=== PATIENT | male | born 1955 | race Caucasian/White ===

== ENCOUNTER 2023-11-01 14:50 | Emergency (ER) | payer MEDICARE, SELFPAY ==
[2023-11-01 14:50] VITALS: BP 157/86; PULSE 83; RESP 16; TEMP 36.3; O2SAT 95
--- NOTE | 2023-11-01 14:59 | ED.DENTAL ---
HPI - Dental/Oral General Chief complaint: Dental/Oral Stated complaint: dental pain Time Seen by Provider: 11/01/23 14:59 Source: patient Mode of arrival: ambulatory Limitations: no limitations History of Present Illness HPI Narrative: patient is a 68-year-old male with left lower jaw pain from a dental problem. Tooth 18 is giving him trouble and he has a dental appointment next week. His left face has pain. MD Complaint: tooth pain Location: Tooth # ( Eighteen) Onset (ago): day(s) (2) Duration: constant Severity: moderate Severity scale (1-10): 7 Relieving factors: nothing Exacerbating factors: chewing, cold, heat and drinking fluids Treatment prior to arrival: none Related Data Home Medications Medication Instructions Recorded Confirmed atorvastatin 10 mg tablet 10 mg PO DAILY 11/01/23 11/01/23 empagliflozin 25 mg tablet 25 mg PO DAILY 11/01/23 11/01/23 (Jardiance) insulin glargine 100 unit/mL (3 20 unit subcut DAILY 11/01/23 11/01/23 mL) subcutaneous pen (Lantus Solostar U-100 Insulin) metformin 500 mg tablet,extended 500 mg PO BID 11/01/23 11/01/23 release 24 hr rivaroxaban 20 mg tablet (Xarelto) 20 mg PO DAILY 11/01/23 11/01/23 Allergies Allergy/AdvReac Type Severity Reaction Status Date / Time No Known Allergies Allergy Verified 11/01/23 14:58 Review of Systems Review of Systems: All systems reviewed & are unremarkable except as noted in HPI and below Constitutional: Constitutional: Reports no additional constitutional complaints Eyes: Eyes: Reports no additional eye complaints ENT: Reports system reviewed and no additional complaints, except as documented Cardiovascular: Cardiovascular: Reports no additional cardiovascular complaints Respiratory: Respiratory: Reports no additional respiratory complaints Gastrointestinal: Gastrointestinal: Reports no additional gastrointestinal complaints Genitourinary: Genitourinary: Reports no additional male genitourinary complaints Musculoskeletal: Musculoskeletal: Reports no additional musculoskeletal complaints Integumentary/Breasts: Skin/Breast: Reports system reviewed and no additional complaints, except as docu Neurologic: Reports system reviewed and no additional complaints, except as documented Psychiatric: Psychiatric: Reports no additional psychiatric complaints Endocrine: Endocrine: Reports no additional endocrine complaints Hematologic/Lymphatic: Hematologic/Lymphatic: Reports no additional hematologic/lymphatic complaints Allergic/Immunologic: Allergic/Immunologic: Reports no additional allergic/immunologic complaints Exam Const: General: healthy appearing Nutritional Appearance: well nourished Orientation/consciousness: patient oriented x3 HENMT: Head: normal to inspection Ears: external ears normal Face/Nose/Sinus: Normal external nose present Other: tooth 18 has decay and local irritation but no abscess Eyes: Conjunctivae: conjunctivae normal Pupils: Equal, round and reactive pupils present EOM: EOMs intact bilaterally Neck: Neck: normal visual inspection Chest: Chest palpation & inspection: normal inspection of the chest Resp: Effort & Inspection: normal respiratory effort and not labored Auscultation: clear to auscultation bilaterally Cardio: Rate: regular rate Rhythm: regular rhythm Heart sounds: no murmurs GI: Inspection: non-distended Auscultation: normal bowel sounds : General: Yes bladder normal to palpation Back/Spine/Pelvis: Back: no CVA tenderness Skin: General skin exam: normal color Rashes: no rashes Wounds: no wounds Neuro: General: patient oriented x3 Cranial nerves: Yes Nystagmus not present Speech: normal speech Extrem: General: normal to inspection Psych: Mental Status: mental status grossly normal Affect: normal affect Attitude: cooperative MDM - Dental/Oral MDM Narrative Medical decision making narrative: patient is a 68-year-old male with tooth decay. W
[2023-11-01] MEDS: KETOROLAC (*BKC) 60 MG/2 ML VIAL IM (15:27)
[2023-11-01] MEDS: AMOXICILLIN/CLAVULANATE K 875-125 MG TAB 1 TABLET PO (15:27)
== END 2023-11-01 15:32 | disposition home or self-care (01) ==
PROVIDERS: Emergency Provider Emergency Medicine; PCP Physician Assistant
DX: R68.84 Jaw pain (principal); Z79.899 Other long term (current) drug therapy; Z79.4 Long term (current) use of insulin
CPT/HCPCS: 96372; 99283; A9270; J1885

== ENCOUNTER 2024-05-09 12:05 | Emergency (ER) | payer MEDICARE, SELFPAY ==
[2024-05-09 12:05] VITALS: BP 130/78; PULSE 80; RESP 18; TEMP 36.6; O2SAT 95
--- NOTE | 2024-05-09 12:13 | ED.WOUNDLAC ---
HPI - Wound/Laceration General Chief Complaint: Wound/Laceration Stated Complaint: LACERATION Time Seen by Provider: 05/09/24 12:12 Related Data Home Medications ?Medication ?Instructions ?Recorded ?Confirmed ?Last Taken ?Type atorvastatin 10 mg tablet 10 mg PO DAILY 11/01/23 11/01/23 Unknown History empagliflozin 25 mg tablet 25 mg PO DAILY 11/01/23 11/01/23 Unknown History (Jardiance) insulin glargine 100 unit/mL (3 20 unit subcut DAILY 11/01/23 11/01/23 Unknown History mL) subcutaneous pen (Lantus Solostar U-100 Insulin) metformin 500 mg tablet,extended 500 mg PO BID 11/01/23 11/01/23 Unknown History release 24 hr rivaroxaban 20 mg tablet (Xarelto) 20 mg PO DAILY 11/01/23 11/01/23 Unknown History Allergies Allergy/AdvReac Type Severity Reaction Status Date / Time No Known Allergies Allergy Verified 05/09/24 12:09 Discharge Plan Discharge Patient Language: Moldovan Prescriptions: No Action atorvastatin 10 mg tablet 10 mg PO DAILY metformin 500 mg tablet extended release 24 hr 500 mg PO BID insulin glargine [Lantus Solostar U-100 Insulin] 100 unit/mL (3 mL) insulin pen 20 unit SUBCUT DAILY Xarelto 20 mg tablet 20 mg PO DAILY Jardiance 25 mg tablet 25 mg PO DAILY amoxicillin-pot clavulanate [Augmentin] 500-125 mg tablet 1 tablet PO BID 10 Days Qty: 20 0RF tramadol 50 mg tablet 50 mg PO Q8H PRN (Reason: pain) Qty: 20 0RF Rx Instructions: 1-2 tabs per dose Follow-up/Referrals: Theron,FLAKO Mak [Primary Care Provider] -
[2024-05-09] MEDS: TETANUS,DIPHTHERIA,AC PERTUSSIS ADULT 0.5 ML (ADACEL) IM (12:24)
[2024-05-09] MEDS: LIDOCAINE 1% LOCAL INJ 10 ML VIAL 7 ML INFILTRATE (12:24)
--- OUTSIDE RECORDS SUMMARY | 2024-05-09 13:07 | XMS_ITS | Encounter Summary ---
Author Organization [facility] Address [address] [place] [address] Phone Care Team Providers Care Rehabilitation Services Manager Name Role Phone Letitia Martínez MD Primary Care Provider Chuck Goldman MD Unavailable [phone] Aubree Crump PAC Primary Care Pro vider Madhavi Ware MD Unavailable Reason for Visit * Reason Comments Medication Refill Encounter Details Date Type Department Care Team (Late st Contact Info) Description 10/17/2019 Refill [facility] [address] [place], [place] [id number] Letitia Martínez MD [address] [place] [address] Medication Refill Social History Tobacco Use Types Packs/Day Years Used Date Smoking Tobacco: Never Smokeless Tobacco: Never Alcohol Use Standard Drinks/Week Comments No 0 (1 standard drink = 0.6 oz pur e alcohol) PHQ-2 Answer Date Recorded PHQ-2 Score 0 12/11/2018 Sex and Gender Information Value Date Recorded Sex Assigned at Not on file Legal Sex Male 10:44 AM CDT Gender Identity Not on file Sexual Orientation Not on file documented as of this encounter Miscellaneous Notes * Telephone Encounter - Megan Padilla RN - 10/21/2019 3:19 PM CDT Request for atorvastatin refused. Medication was authorized on 08-10-19 for #[id number]. Pharmacy notified via [email or web address]. documented in this encounter Plan of Treatment Upcoming Encounters Date Type Department Care Team (Late st Contact Info) Description 05/20/2024 8:15 AM SEARCH ENGINE MARKETING MANAGER Office [facility] - Internal Medicine - [place] [address] [place] [id number] Aubree Crump, [facility] [address] [place] [address] documented as of this encounter Visit Diagnoses Not on filedocumented in this encounter Additional Health Concerns Assessment Noted Time PHQ-9 Depression Total Score: 0 11/12/19 19 2:49 PM CDT documented as of this encounter Care Teams Rehabilitation Services Manager Relationship Specialty Start Date End Date Letitia Martínez MD [address] [place] [address] PCP - General Family Medicine 02/23/15 08/02/20 Aubree Crump, [facility] [address] [place] [address] PCP - General Physician Specialist Wound Care 08/03/20 Chuck Goldman MD [address] [place] [address] Consulting Physician Family Medicine 05/13/18 Madhavi Ware MD [address] [phone] Consulting Physician Endocrinology 08/29/22 documented as of this encounter
--- OUTSIDE RECORDS SUMMARY | 2024-05-09 13:07 | XMS_ITS | Encounter Summary ---
Author Organization [facility] Address [address] [place] [address] Phone Care Team Providers Care Thoracic Medicine Specialist Name Role Phone Chuck Goldman MD Unavailable [phone] Aubree Crump PAC Primary Care Pro vider Madhavi Ware MD Unavailable Reason for Visit * Reason Comments Medication Refill Encounter Details Date Type Department Care Team (Late st Contact Info) Description 07/14/2022 Refill [facility] [place] [facility] - Internal Medicine - [place] [address] [place] [address] Aubree Crump, PAC [address] [place] [address] Medication Refill Social History Tobacco Use Types Packs/Day Years Used Date Smoking Tobacco: Never Smokeless Tobacco: Never Alcohol Use Standard Drinks/Week Comments No 0 (1 standard drink = 0.6 oz pur e alcohol) PHQ-2 Answer Date Recorded Total Score - Questions 1-9 0 04/07 Sex and Gender Information Value Date Recorded Sex Assigned at Not on file Legal Sex Male 10:44 AM CDT Gender Identity Not on file Sexual Orientation Not on file documented as of this encounter Miscellaneous Notes * Telephone Encounter - Manuela Alva RN - 07/14/2022 11:05 AM CDT Medication failed the protocol, provider to review and approve the medication order if appropriate. Requested Prescriptions Pending Prescriptions Disp Refills Jardiance 25 MG Tablet [Pharmacy Med Name: JARDIANCE 25 MG TABLET] 90 Tablet 1 Sig: TAKE 1 TABLET BY MOUTH DAILY. SGLT2 Inhibitors Protocol Failed - 07/14/2022 10:09 AM Failed - Visit with relevant provider in past 6 months or upcoming 90 days Recent Visits No visits were found meeting these conditions. Showing recent visits within past 182 days and meeting all other requirements Future Appointments No visits were found meeting these conditions. Showing future appointments within next 90 days and meeting all other requirements Passed - HgA1C on record in past 6 months HGB-A1C Date Value Ref Range Status 05/17/2022 8.2 (H) 4.0 - 6.0 % Final Passed - GFR greater than or equal to 30 in past 6 months GFR, EST. NONAFRICAN Date Value Ref Range Status 05/17/2022 >60 >=60 Final metFORMIN (GLUCOPHAGE-XR) 500 MG TABLET SR 24 HR [Pharmacy Med Name: METFORMIN ER 500MG TABLETS] 180 Tablet 0 Sig: TAKE 2 TABLETS DAILY Biguanides Protocol Failed - 07/14/2022 10:09 AM Failed - Visit with relevant provider in past 6 months or upcoming 90 days Recent Visits No visits were found meeting these conditions. Showing recent visits within past 182 days and meeting all other requirements Future Appointments No visits were found meeting these conditions. Showing future appointments within next 90 days and meeting all other requirements Passed - HgA1C on record in past 6 months HGB-A1C Date Value Ref Range Status 05/17/2022 8.2 (H) 4.0 - 6.0 % Final Passed - GFR on record in past 6 months GFR, EST. NONAFRICAN Date Value Ref Range Status 05/17/2022 >60 >=60 Final documented in this encounter Plan of Treatment Upcoming Encounters Date Type Department Care Team (Late st Contact Info) Description 05/20/2024 8:15 AM TILTING SAW OPERATOR Office Visit [facility] - Internal Medicine - [place] [address] [place] [address] Aubree Crump, PAC [address] [place] [place] [address] documented as of this encounter Visit Diagnoses Not on filedocumented in this encounter Additional Health Concerns Assessment Noted Time PHQ-9 Depression Total Score: 0 08/04/19 21 3:00 PM CDT documented as of this encounter Care Teams Thoracic Medicine Specialist Relationship Specialty Start Date End Date Aubree Crump, PAC [address] [place] [address] PCP - General Physician Flag Signalman 08/03/20 Chuck Goldman MD [address] [place] [address] Consulting Physician Family Medicine 05/13/18 Madhavi Ware MD [address] [address] Consulting Physician Endocrinology 08/29/22 documented as of this encounter
--- OUTSIDE RECORDS SUMMARY | 2024-05-09 13:07 | XMS_ITS | Encounter Summary ---
Author Organization [facility] Address [address] [place] [address] Phone Care Team Providers Care Supervisor Wet Pour Name Role Phone Chuck Goldman MD Unavailable Aubree Crump PAC Primary Care Pro vider Madhavi Ware MD Unavailable Reason for Visit * Reason Comments Medication Refill Encounter Details Date Type Department Care Team (Late st Contact Info) Description 10/08/2021 Refill [facility] - Internal Medicine - [place] [address] [place] [address] Aubree Crump, PAC [address] [place] [address] Medication Refill Social History Tobacco [...] on file Sexual Orientation Not on file COVID-19 Exposure Response Date Recorded In the last 10 days, have yo u been in contact with someone who was confirmed or suspected to have Coronavirus/COVID-19? No / Unsure 09/24/2021 8:33 AM CDT documented as of this encounter Miscellaneous Notes * Telephone Encounter - Manuela Alva RN - 10/09/2021 9:01 AM CDT Medication failed the protocol, provider to review and approve the medication order if appropriate. Requested Prescriptions Pending Prescriptions Disp Refills Jardiance 25 MG Tablet [Pharmacy Med Name: JARDIANCE 25 MG TABLET] 90 Tablet 1 Sig: TAKE 1 TABLET BY MOUTH DAILY. SGLT2 Inhibitors Protocol Failed - 10/08/2021 3:40 PM Failed - GFR greater than or equal to 30 in past 6 months GFR, EST. NONAFRICAN Date Value Ref Range Status 01/26/2021 >60 >=60 Final Passed - Visit with relevant provider in past 6 months or upcoming 90 days Recent Visits Date Type Provider Dept 05/03/21 Office Visit Aubree Crump, [facility] [place] Showing recent visits within past 182 days and meeting all other requirements Future Appointments Date Type Provider Dept 11/11/21 Appointment Aubree Crump, [facility] [place] Showing future appointments within next 90 days and meeting all other requirements Passed - HgA1C on record in past 6 months HGB-A1C Date Value Ref Range Status 09/24/2021 8.0 (H) 4.0 - 6.0 % Final documented in this encounter Plan of Treatment Upcoming Encounters Date Type Department Care Team (Late st Contact Info) Description 05/20/2024 8:15 AM STUFFER Office Visit [facility] - Internal Medicine - [place] [address] [place] [address] Aubree Crump PAC [address] [place] [address] documented as of this encounter Visit Diagnoses Not on filedocumented in this encounter Additional Health Concerns Assessment Noted Time PHQ-9 Depression Total Score: 0 08/04/19 21 3:00 PM CDT documented as of this encounter Care Teams Supervisor Wet Pour Relationship Specialty Start Date End Date Aubree Crump PAC [address] [place] [address] PCP - General Physician Artist Consultant 08/03/20 Chuck Goldman MD [address] [place] [address] Consulting Physician Family Medicine 05/13/18 Madhavi Ware MD [address] [phone] Consulting Physician Endocrinology 08/29/22 documented as of this encounter
--- OUTSIDE RECORDS SUMMARY | 2024-05-09 13:07 | XMS_ITS | Clinical Summary ---
Author Organization [facility] Address [address] [place] [address] Care Team Providers Care Profiler Operator Name Role Phone Letitia Martínez MD Primary Care Provider [phone] Allergies No known active allergies Medications SITagliptin (JANUVIA) 100 mg tabletIndicatio ns:type 2 diabetes mellitus TAKE ONE TABLET BY MOUTH ONCE DAILY 04/30/2016 Active rivaroxaban (XARELTO) tablet Take 20 mg by mouth. 11/22/2015 Active metFORMIN XR (GLUCOPHAGE XR) 500 mg 24 hr tablet TAKE 2 TABLETS BY MOUTH ONCE DAILY DIRECTED 04/16/2016 Active atorvastatin (LIPITOR) 10 mg tablet TAKE 1 TAB BY MOUTH DAILY. 11/15/2015 Active blood glucose diagnostic (glucose blood) strip Use as directed 08/27/2015 Active LANCETS MISC Use as directed 08/23/2015 Active Active Problems No known active problems Surgical History Surgery Date Site/Laterality Comments KNEE ARTHROPLASTY 2010 Right Knee replacement CARPAL TUNNEL RELEASE 1991 Carpal tunnel release KNEE ARTHROSCOPY 2005 Right Arthroscopy knee KNEE ARTHROPLASTY Left Knee replacement Medical History Medical History Date Comments Hx Other Medical blood clots in leg Malignant neoplasm of prostate (HCC) Cancer, prostate Social History Tobacco Use Types Packs/Day Years Used Date Smoking Tobacco: Never Smokeless Tobacco: Never Alcohol Use Standard Drinks/Week Comments No 0 (1 standard drink = 0.6 oz pur e alcohol) Personal Safety Answer Date Recorded Getting School Help Needed Not on file 06/19 Sex and Gender Information Value Date Recorded Sex Assigned at Not on file Legal Sex Male 1:22 AM 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 AND 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 Gender Identity Not on file Sexual Orientation Not on file Obstetrics History Last Filed Vital Signs Vital Sign Reading Time Taken Comments Blood Pressure 144/85 11/17/2016 1:02 PM CDT Pulse 62 11/17/2016 1:02 PM CDT Temperature - - Respiratory Rate - - Oxygen Saturation 98% 06/17/2012 1:45 PM CDT Inhaled Oxygen Concentration - - Weight 118.1 kg (260 lb 6.4 oz) 11/17/2016 1:02 PM CDT Height 172.7 cm (5' 8 ) 11/17/2016 1:02 PM CDT Body Mass Index 39.59 11/17/2016 1:02 PM CDT Plan of Treatment Not on file Insurance [employer] CLAIMS [facility]ICE MEDIC[facility] Care Teams Profiler Operator Relationship Specialty Start Date End Date Letitia Martínez MD PCP - General 11/20/14
--- OUTSIDE RECORDS SUMMARY | 2024-05-09 13:07 | XMS_ITS | Encounter Summary ---
Author Organization [facility] Address [address] [place] [address] Phone Care Team Providers Care General Assembler Installer Name Role Phone Chuck Goldman MD Unavailable [phone] Aubree Crump PAC Primary Care Pro vider Madhavi Ware MD Unavailable Reason for Visit * Reason Comments Medication Refill Encounter Details Date Type Department Care Team (Late st Contact Info) Description 12/26/2021 Refill [facility] - Internal Medicine - [place] [address] [place] [address] Aubree Crump, PAC [address] [place] [address] Medication Refill Social History Tobacco [...] encounter Miscellaneous Notes * Telephone Encounter - Kate Medel RN - 12/26/2021 11:47 AM CDT Medication failed the protocol, provider to review and approve the medication order if appropriate. Requested Prescriptions Pending Prescriptions Disp Refills metFORMIN (GLUCOPHAGE-XR) 500 MG TABLET SR 24 HR [Pharmacy Med Name: METFORMIN ER 500MG TABLETS] 180 Tablet 0 Sig: TAKE 2 DAYS DAILY Biguanides Protocol Failed - 12/26/2021 10:28 AM Failed - Visit with relevant provider in past 6 months or upcoming 90 days Recent Visits No visits were found meeting these conditions. Showing recent visits within past 182 days and meeting all other requirements Future Appointments No visits were found meeting these conditions. Showing future appointments within next 90 days and meeting all other requirements Failed - GFR on record in past 6 months GFR, EST. NONAFRICAN Date Value Ref Range Status 01/26/2021 >60 >=60 Final Passed - HgA1C on record in past 6 months HGB-A1C Date Value Ref Range Status 09/24/2021 8.0 (H) 4.0 - 6.0 % Final documented in this encounter Plan of Treatment Upcoming Encounters Date Type Department Care Team (Late st Contact Info) Description 05/20/2024 8:15 AM PHOTOGRAPHIC EDITOR Office Visit [facility] - Internal Medicine [place] [address] [place] [address] Aubree Crump PAC [address] [place] [address] documented as of this encounter Visit Diagnoses Not on filedocumented in this encounter Additional Health Concerns Assessment Noted Time PHQ-9 Depression Total Score: 0 08/04/19 21 3:00 PM CDT documented as of this encounter Care Teams General Assembler Installer Relationship Specialty Start Date End Date Aubree Crump PAC [address] [place] [address] PCP - General Physician Business Editor 08/03/20 Chuck Goldman MD [address] [place] [address] Consulting Physician Family Medicine 05/13/18 Madhavi Ware MD [address] [phone] Consulting Physician Endocrinology 08/29/22 documented as of this encounter
--- OUTSIDE RECORDS SUMMARY | 2024-05-09 13:07 | XMS_ITS | Encounter Summary ---
Author Organization [facility] Address [address] [place] [address] Phone Care Team Providers Care Carpentry Supervisor Name Role Phone Chuck Goldman MD Unavailable [phone] Aubree Crump PAC Primary Care Pro vider Madhavi Ware MD Unavailable Reason for Visit * Reason Comments Medication Refill Encounter Details Date Type Department Care Team (Late st Contact Info) Description 05/15/2022 Refill [facility] - Internal Medicine - [place] [address] [place] [address] Aubree Crump, PAC [address] [place] [address] Medication Refill Social History Tobacco [...] suspected to have Coronavirus/COVID-19? No / Unsure 05/17/2022 7:56 AM ASTRONOMY PROFESSOR documented as of this encounter Miscellaneous Notes * Telephone Encounter - Manuela Alva RN - 05/15/2022 2:04 PM CST Medication failed the protocol, provider to review and approve the medication order if appropriate. Requested Prescriptions Pending Prescriptions Disp Refills atorvastatin (LIPITOR) 10 MG Tablet [Pharmacy Med Name: ATORVASTATIN 10 MG TABLET] 90 Tablet 1 Sig: TAKE 1 TABLET BY MOUTH DAILY. Hmg CoA Reductase Inhibitors Protocol Failed - 05/15/2022 12:23 PM Failed - Visit with relevant provider in past 12 months or upcoming 90 days Recent Visits No visits were found meeting these conditions. Showing recent visits within past 365 days and meeting all other requirements Future Appointments No visits were found meeting these conditions. Showing future appointments within next 90 days and meeting all other requirements Failed - Lipid panel in past 12 months LDL Date Value Ref Range Status 01/26/2021 97 5 - 130 mg/dL Final HDL CHOLESTEROL Date Value Ref Range Status 01/26/2021 49.8 >40 mg/dL Final CHOLESTEROL Date Value Ref Range Status 01/26/2021 170 <=200 mg/dL Final TRIGLYCERIDES Date Value Ref Range Status 01/26/2021 117 <150 mg/dL Final VLDL Date Value Ref Range Status 01/26/2021 23 5 - 55 mg/dL Final CHOL/HDL RATIO Date Value Ref Range Status 01/26/2021 3.4 0.0 - 4.4 Final NON-HDL CHOLESTEROL Date Value Ref Range Status 01/26/2021 120.2 <130 mg/dL Final Xarelto 20 MG Tablet [Pharmacy Med Name: XARELTO 20 MG TABLET] 90 Tablet 3 Sig: TAKE 1 TABLET BY MOUTH DAILY. TAKE WITH FOOD. INDICATIONS: VENOUS THROMBOEMBOLISM Not Delegated - DOACs Protocol Failed - 05/15/2022 12:23 PM Failed - This refill cannot be delegated Failed - CBC on record in the past year WBC Date Value Ref Range Status 01/26/2021 7.82 4.00 - 12.00 10(3)/mcL Final RBC Date Value Ref Range Status 01/26/2021 5.11 4.40 - 5.80 10(6)/mcL Final HEMATOCRIT (HCT) Date Value Ref Range Status 01/26/2021 45.6 38.0 - 50.0 % Final HEMOGLOBIN (HGB) Date Value Ref Range Status 01/26/2021 15.5 13.0 - 16.5 g/dL Final MCV Date Value Ref Range Status 01/26/2021 89.2 82.0 - 96.0 fL Final MCH Date Value Ref Range Status 01/26/2021 30.3 26.0 - 32.0 pg Final MCHC Date Value Ref Range Status 01/26/2021 34.0 31.0 - 36.0 g/dL Final Failed - Visit with relevant provider in past 12 months or upcoming 90 days Recent Visits No visits were found meeting these conditions. Showing recent visits within past 365 days and meeting all other requirements Future Appointments No visits were found meeting these conditions. Showing future appointments within next 90 days and meeting all other requirements Failed - CMP on record in the past year SODIUM Date Value Ref Range Status 01/26/2021 137 136 - 144 mmol/L Final POTASSIUM Date Value Ref Range Status 01/26/2021 4.1 3.5 - 5.1 mmol/L Final CHLORIDE Date Value Ref Range Status 01/26/2021 103 100 - 110 mmol/L Final CO2, VENOUS Date Value Ref Range Status 01/26/2021 23 22 - 32 mmol/L Final ANION GAP Date Value Ref Range Status 01/26/2021 15.1 8.0 - 20.0 mmol/L Final GLUCOSE Date Value Ref Range Status 01/26/2021 188 (H) 70 - 99 mg/dL Final BUN Date Value Ref Range Status 01/26/2021 18 8 - 23 mg/dL Final CREATININE, BLOOD Date Value Ref Range Status 01/26/2021 0.97 0.80 - 1.30 mg/dL Final BUN/CREATININE RATIO Date Value Ref Range Status 01/26/2021 19 12 - 20 ratio Final TOTAL PROTEIN Date Value Ref Range Status 01/26/2021 7.1 6.0 - 8.3 g/dL Final ALBUMIN Date Value Ref Range Status 01/26/2021 4.4 3.5 - 5.2 g/dL Final Comment: The colormetric methods used for the determination of Albumin may lead to falsely elevated test results in patients suffering from renal failure or insufficiency due to interference with other proteins. A/G RATIO Date Value Ref Range Status 01/26/2021 1.6 1.0 - 2.0 Final CALCIUM Date Value Ref Range Status 01/26/2021 9.5 8.9 - 10.3 mg/dL Final T BILI Date Value Ref Range Status 01/26/2021 0.4 <=1.2 mg/dL Final SGOT (AST) Date Value Ref Range Status 01/26/2021 14 <=40 U/L Final SGPT (ALT) Date Value Ref Range Status 01/26/2021 21 <=41 U/L Final ALKALINE PHOSPHATASE Date Value Ref Range Status 01/26/2021 100 40 - 130 U/L Final GFR, EST. NONAFRICAN Date Value Ref Range Status 01/26/2021 >60 >=60 Final GFR, EST. Date Value Ref Range Status 01/26/2021 >60 >=60 Final Comment: Creatinine Clearance is the preferred criteria for selecting drug dose adjustments in renally impaired patients. The GFR is provided as additional pertinent clinical information. GFR is reported in mL/min/1.73 sq m. IS THE PATIENT REQUIRED TO BE FASTING? Date Value Ref Range Status 01/26/2021 No Final Failed - Creatinine and GFR on record in the past year CREATININE, BLOOD Date Value Ref Range Status 01/26/2021 0.97 0.80 - 1.30 mg/dL Final GFR, EST. NONAFRICAN Date Value Ref Range Status 01/26/2021 >60 >=60 Final atorvastatin (LIPITOR) 10 MG Tablet [Pharmacy Med Name: ATORVASTATIN 10 MG TABLET] 90 Tablet 1 Sig: TAKE 1 TABLET BY MOUTH DAILY. Hmg CoA Reductase Inhibitors Protocol Failed - 05/15/2022 12:23 PM Failed - Visit with relevant provider in past 12 months or upcoming 90 days Recent Visits No visits were found meeting these conditions. Showing recent visits within past 365 days and meeting all other requirements Future Appointments No visits were found meeting these conditions. Showing future appointments within next 90 days and meeting all other requirements Failed - Lipid panel in past 12 months LDL Date Value Ref Range Status 01/26/2021 97 5 - 130 mg/dL Final HDL CHOLESTEROL Date Value Ref Range Status 01/26/2021 49.8 >40 mg/dL Final CHOLESTEROL Date Value Ref Range Status 01/26/2021 170 <=200 mg/dL Final TRIGLYCERIDES Date Value Ref Range Status 01/26/2021 117 <150 mg/dL Final VLDL Date Value Ref Range Status 01/26/2021 23 5 - 55 mg/dL Final CHOL/HDL RATIO Date Value Ref Range Status 01/26/2021 3.4 0.0 - 4.4 Final NON-HDL CHOLESTEROL Date Value Ref Range Status 01/26/2021 120.2 <130 mg/dL Final ONOMY PROFESSOR documented in this encounter Plan of Treatment Upcoming Encounters Date Type Department Care Team (Late st Contact Info) Description 05/20/2024 8:15 AM ASTRONOMY PROFESSOR Office Visit [facility] - Internal Medicine - [place] [address] [place] [id number] Aubree Crump PAC [address] [place] [address] documented as of this encounter Visit Diagnoses Diagnosis Other hyperlipidemia 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) use of anticoagulants Long-term (current) use of anticoagulants documented in this encounter Additional Health Concerns Assessment Noted Time PHQ-9 Depression Total Score: 0 08/04/19 21 3:00 PM CDT documented as of this encounter Care Teams Carpentry Supervisor Relationship Specialty Start Date End Date Aubree Crump PAC [address] [place] [address] PCP - General Physician Truck Jumper 08/03/20 Chuck Goldman MD [address] [place] [address] Consulting Physician Family Medicine 05/13/18 Madhavi Ware MD #[address] [phone] Consulting Physician Endocrinology 08/29/22 documented as of this encounter
--- OUTSIDE RECORDS SUMMARY | 2024-05-09 13:07 | XMS_ITS | Referral Summary ---
Author Organization [facility] Address [address] [place] [address] Care Team Providers Care Supervisor Drilling And Shooting Name Role Phone Letitia Martínez MD Primary Care Provider [phone] Allergies No known active allergies Medications SITagliptin [...] Active Active Problems No known active problems Social History Tobacco Use Types Packs/Day Years Used Date Smoking Tobacco: Never Smokeless Tobacco: Never Alcohol Use Standard Drinks/Week Comments No 0 (1 standard drink = 0.6 oz pur e alcohol) Personal Safety Answer Date Recorded Getting School Help Needed Not on file 06/19 Sex and Gender Information Value Date Recorded Sex Assigned at Not on file Legal Sex Male 1:22 AM BULK RECEIVER Gender Identity Not on file Sexual Orientation Not on file Last Filed Vital Signs Vital Sign Reading [...] Plan of Treatment Not on file Insurance [facility] CLAIMS OFFICE MEDICARE [facility] Care Teams Supervisor Drilling And Shooting Relationship Specialty Start Date End Date Letitia Martínez MD PCP - General 11/20/14
--- OUTSIDE RECORDS SUMMARY | 2024-05-09 13:07 | XMS_ITS | Clinical Summary ---
Author Organization [facility] Address [facility] [facility] [place] [address] [place] [address] Care Team Providers Care Presser Hand Name Role Phone Aubree Crump Primary Care Provider [phone] Fabian Carrillo MD Unavailable [phone] Medications rivaroxaban (XARELTO) 20 MG Tab tablet Take by mouth daily with supper. Take with food 11/21/2022 Active atorvastatin (LIPITOR) 10 MG tablet Take 1 tablet (10 mg total) by mouth nightly at bedtime. Active SITagliptin (JANUVIA) 25 mg Tab Take 2 tablets (50 mg total) by mouth daily. Active metFORMIN ER, OSM, (FORTAMET) 500 MG 24 hr tablet Take 1 tablet (500 mg total) by mouth daily with breakfast. Active multivitamin with minerals liquid Take 15 mLs by mouth daily. Active Active Problems No known active problems Social History Tobacco Use Types Packs/Day Years Used Date Smoking Tobacco: Never Assessed Sex and Gender Information Value Date Recorded Sex Assigned at Not on file Legal Sex Male 11:28 PM CDT Gender Identity Not on file Sexual Orientation Not on file Last Filed Vital Signs Vital Sign Reading Time Taken Comments Blood Pressure 135/85 11/14/2022 2:29 PM CDT Pulse 66 11/14/2022 2:29 PM CDT Temperature - - Respiratory Rate 18 11/14/2022 2:29 PM CDT Oxygen Saturation - - Inhaled Oxygen Concentration - - Weight 108 kg (238 lb 3.2 oz) 11/14/2022 2:29 PM CDT Height 170.2 cm (5' 7 ) 11/14/2022 2:29 PM CDT Body Mass Index 37.31 11/14/2022 2:29 PM CDT Plan of Treatment Health Maintenance Due Date Last Done Comments Colorectal Cancer Screening Colonoscopy (10 Years) 1955 Hepatitis C 10/29/1971 Zoster Vaccines (1 of 2) 10/29/2003 DTaP, Tdap and Td Vaccines ( 1 - Tdap) 04/07/2008 04/06/2008 Annual Medicare Wellness Visit 2018 Pneumococcal Vaccine: 65+ Years (2 of 2 - PCV) 2018 11/06/2016 COVID-19 Vaccine (3 - 2023-2 5 season) 2023 08/30/2020, 08/08/2020 Influenza Adult (#1) 2024 RSV Immunization or 60+ Years (1 - 1-dose 75+ series) 2028 Meningococcal B Vaccine Aged Out No l onger eligible based on patient's age to complete this topic Meningococcal Vaccine Aged Out No john mak eligible based on patient's age to complete this topic RSV Immunizations Under 20 Months Aged Out No longer eligible b ased on patient's age to complete this topic Insurance MEDICARE [facility] Care Teams Presser Hand Relationship Specialty Start Date End Date Aubree Crump PA PCP - General PHYSICIAN MANUFACTURING LEADER 10/23/22 Fabian Carrillo MD [address] [place] [id number] Consulting Physician INTERVENTIONAL CARDIOLOGY 10/23/22
--- OUTSIDE RECORDS SUMMARY | 2024-05-09 13:07 | XMS_ITS | Encounter Summary ---
Author Organization [facility] Address [address] [place] [address] Phone Care Team Providers Care Auto Claims Adjuster Name Role Phone Chuck Goldman MD Unavailable [phone] Aubree Crump PAC Primary Care Pro vider Madhavi Ware MD Unavailable Reason for Visit * Reason Comments Medication Refill Encounter Details Date Type Department Care Team (Late st Contact Info) Description 08/14/2022 Refill [facility] - Internal Medicine - [place] [address] [place] [address] Aubree Crump, PAC [address] [place] [address] Medication Refill Social History Tobacco [...] encounter Miscellaneous Notes * Telephone Encounter - Devika Lucio RN - 08/15/2022 10:32 AM CDT Patient now has an appointment scheduled 08/27/22 Medication failed the protocol, provider to review and approve the medication order if appropriate. Requested Prescriptions Pending Prescriptions Disp Refills atorvastatin (LIPITOR) 10 MG Tablet [Pharmacy Med Name: ATORVASTATIN 10 MG TABLET] 90 Tablet 1 Sig: TAKE 1 TABLET BY MOUTH DAILY. Hmg CoA Reductase Inhibitors Protocol Failed - 08/14/2022 4:47 PM Failed - Visit with relevant provider in past 12 months or upcoming 90 days Recent Visits No visits were found meeting these conditions. Showing recent visits within past 365 days and meeting all other requirements Future Appointments Date Type Provider Dept 08/27/22 Appointment Aubree Crump PAC [facility] [place] Showing future appointments within next 90 days and meeting all other requirements Passed - Lipid panel in past 12 months LDL Date Value Ref Range Status 05/17/2022 107 5 - 130 mg/dL Final HDL CHOLESTEROL Date Value Ref Range Status 05/17/2022 51.0 >40 mg/dL Final CHOLESTEROL Date Value Ref Range Status 05/17/2022 177 <=200 mg/dL Final TRIGLYCERIDES Date Value Ref Range Status 05/17/2022 93 <150 mg/dL Final VLDL Date Value Ref Range Status 05/17/2022 19 5 - 55 mg/dL Final CHOL/HDL RATIO Date Value Ref Range Status 05/17/2022 3.5 0.0 - 4.4 Final NON-HDL CHOLESTEROL Date Value Ref Range Status 05/17/2022 126 <130 mg/dL Final Januvia 50 MG Tablet [Pharmacy Med Name: JANUVIA 50 MG TABLET] 90 Tablet 1 Sig: TAKE 1 TABLET BY MOUTH DAILY. DPP-4 Inhibitors Protocol Failed - 08/14/2022 4:47 PM Failed - Visit with relevant provider in past 6 months or upcoming 90 days Recent Visits No visits were found meeting these conditions. Showing recent visits within past 182 days and meeting all other requirements Future Appointments Date Type Provider Dept 08/27/22 Appointment Aubree Crump PAC [facility] [place] Showing future appointments within next 90 days and meeting all other requirements Passed - HgA1C on record in the past 6 months HGB-A1C Date Value Ref Range Status 05/17/2022 8.2 (H) 4.0 - 6.0 % Final Passed - GFR on record in past 6 months GFR, EST. NONAFRICAN Date Value Ref Range Status 05/17/2022 >60 >=60 Final documented in this encounter Plan of Treatment Upcoming Encounters Date Type Department Care Team (Late st Contact Info) Description 05/20/2024 8:15 AM CYANIDE CASE HARDENER Office Visit [facility] - Internal Medicine - [place] [address] [place] [address] Aubree Crump, PAC [address] [place] [address] documented as of this encounter Visit Diagnoses Diagnosis Other hyperlipidemia Type 2 diabetes mellitus without complication, without long-term current use of insulin (HCC) documented in this encounter Additional Health Concerns Assessment Noted Time PHQ-9 Depression Total Score: 0 08/04/19 21 3:00 PM CDT documented as of this encounter Care Teams Auto Claims Adjuster Relationship Specialty Start Date End Date Aubree Crump, [facility] [address] [place] [address] PCP - General Physician Associate Account Executive 08/03/20 Chuck Goldman MD [address] [place] [address] Consulting Physician Family Medicine 05/13/18 Madhavi Ware MD #[address] [phone] Consulting Physician Endocrinology 08/29/22 documented as of this encounter
--- OUTSIDE RECORDS SUMMARY | 2024-05-09 13:07 | XMS_ITS | Encounter Summary ---
Author Organization [facility] Address [address] [place] [address] Phone Care Team Providers Care Gemologist Name Role Phone Chuck Goldman MD Unavailable [phone] Aubree Crump PAC Primary Care Pro vider Madhavi Ware MD Unavailable Reason for Visit * Reason Comments Medication Refill Encounter Details Date Type Department Care Team (Late st Contact Info) Description 09/26/2021 Refill [facility] - Internal Medicine - [place] [address] [place] [address] Aubree Crump, PAC [address] [place] [address] Medication Refill Social History Tobacco [...] Telephone Encounter - Kate Medel RN - 09/26/2021 3:31 PM CDT Medication failed the protocol, provider to review and approve the medication order if appropriate. Requested Prescriptions Pending Prescriptions Disp Refills metFORMIN (GLUCOPHAGE-XR) 500 MG TABLET SR 24 HR [Pharmacy Med Name: METFORMIN ER 500MG TABLETS] 180 Tablet 0 Sig: Take 2 days daily Biguanides Protocol Failed - 09/26/2021 1:09 PM Failed - GFR on record in past 6 months GFR, EST. NONAFRICAN Date Value Ref Range Status 01/26/2021 >60 >=60 Final Passed - Visit with relevant provider in past 6 months or upcoming 90 days Recent Visits Date Type Provider Dept 05/03/21 [facility] Visit [facility] Showing recent visits within past 182 days and meeting all other requirements Future Appointments Date Type Provider Dept 11/01/21 Appointment Aubree Crump PAC [facility] [place] Showing future appointments within next 90 days and meeting all other requirements Passed - HgA1C on record in past 6 months HGB-A1C Date Value Ref Range Status 09/24/2021 8.0 (H) 4.0 - 6.0 % Final documented in this encounter Plan of Treatment Upcoming Encounters Date Type Department Care Team (Late st Contact Info) Description 05/20/2024 8:15 AM ACID SPLICER Office Visit [facility] - Internal Medicine - [place] [address] [place] [address] Aubree Crump, [place] [address] [place] [address] documented as of this encounter Visit Diagnoses Not on filedocumented in this encounter Additional Health Concerns Assessment Noted Time PHQ-9 Depression Total Score: 0 08/04/19 21 3:00 PM CDT documented as of this encounter Care Teams Gemologist Relationship Specialty Start Date End Date Aubree Crump PAC [address] [place] [address] PCP - General Physician Dog Boarder 08/03/20 Chuck Goldman MD [address] [place] [address] Consulting Physician Family Medicine 05/13/18 Madhavi Ware MD #[address] [id number] Consulting Physician Endocrinology 08/29/22 documented as of this encounter
--- OUTSIDE RECORDS SUMMARY | 2024-05-09 13:07 | XMS_ITS | Clinical Summary ---
Author Organization [facility] Care Team Providers Care Canary Raiser Name Role Phone Chuck Goldman MD Unavailable [phone] Aubree Crump PAC Primary Care Pro vider Madhavi Ware MD Unavailable Allergies No known active allergies Medications Lancets MiscIndications:Ne wly diagnosed diabetes (HCC) Use as directed 100 Lancet 02/08/20 20 Active Multiple Vitamin (MULTI-VITAMIN PO) Take by mouth. Active rivaroxaban (Xarelto) 20 MG TabletIndications: Venous Thromboembolism Take 1 Tablet by mouth daily. Indications: Venous Thromboembolism 90 Tablet 3 04/23/19 24 Active metFORMIN (GLUCOPHAGE-XR) 500 MG TABLET SR 24 HR Take 2 Tablets by mouth 2 times daily. 360 Tablet 1 06/05/19 24 Active empagliflozin (Jardiance) 25 MG Tablet Take 1 Tablet by mouth daily. 90 Tablet 1 06/05/19 24 Active Insulin Pen Needle (Pen [place]) 31G X 6 MM Misc Once a day 100 Each 3 09/10/19 24 Active Glucose Blood (OneTouch Ultra) Strip 2 times a day 200 Each 3 09/10/19 24 Active Blood Glucose Monitoring Suppl (ONE TOUCH ULTRA 2) w/Device Kit Check blood glucose before breakfast and at bedtime 1 Each 09/10/19 24 Active semaglutide, 2 MG/DOSE, (Ozempic, 2 MG/DOSE,) 8 MG/3ML Solution Pen-injector 2 mg by Subcutaneous route once a week. 9 mL 1 09/10/19 24 Active insulin degludec (Tresiba FlexTouch) 100 UNIT/ML Solution Pen-injector 20 Units by Subcutaneous route nightly. 15 mL 1 09/15/19 24 Active atorvastatin (LIPITOR) 10 MG TabletIndications: Other hyperlipidemia Take 1 Tablet by mouth daily. 90 Tablet 1 09/18/19 24 Active Continuous Glucose Sensor (Dexcom G7 Sensor) Misc 1 Each by Does not apply route every 10 days. Change sensor every 10 days. 9 Each 1 10/12/19 24 Active Active Problems Problem Noted Date Diagnosed Date Other hyperlipidemia 08/03/2020 Type 2 diabetes mellitus wit hout complication, without long-term current use of insulin 11/09/2017 Overview (10/14/2023): Dr Chaz barajas ENDO manages Recurrent deep vein thrombosis (DVT) 08/23/2015 Assessment & Plan (10/14/2023 8:41 AM CDT): I had the pleasure of seeing this very pleasant 67-year-old gentleman for counseling him on chronic venous insufficiency and a history of DVTs 20 years ago the patient had an idiopathic, nonprovoked, none situational left popliteal vein deep venous thrombosis symptomatic for pain and edema. The symptoms resolved. A few years ago he had recurrent left lower extremity DVT associated with knee replacement. He was put on Xarelto which he continues to take up until today about the high murray may not be affordable next year when his loses health insurance. He is not symptomatic for edema or pain, he has no symptoms of venous claudication or postthrombotic syndrome. He never had pulmonary emboli or arterial thrombosis. Cardiopulmonary exam is normal Recommendations and Plan: Recurrent episodes of DVT, the first 1 idiopathic the second 1 situational. I explained the increased risk of recurrent venous thromboembolic events in the future. I offered him 3 options including complete discontinuation of Xarelto, continue full dose Xarelto and I strongly recommended to consider the third option, namely secondary prophylactic dose of Xarelto 10 mg daily long-term. [facility] (current) use of anticoagulants Obesity Malignant neoplasm of prostate Resolved Problems Problem Noted Date Diagnosed Date Resolved Date Newly diagnosed diabetes 08/23/201509/2017 Umbilical hernia 01/22/2018 Embolism and thrombosis 08/04 Immunizations Immunization Administration Dates Next Due Pneumococcal Vaccine Adult - 23 Valent 7 TD VACCINE 04/06/2008 Family History Medical History Relation Name Comments Heart Attack Brother Diabetes Father Heart Attack Father Prostate Cancer Father No Known Problems Maternal Grandfather No Known Problems Maternal Grandmother No Known Problems Mother No Known Problems Other No Known Problems Paternal Grandfather No Known Problems Paternal Grandmother Prostate Cancer Paternal Uncle 1 veronica Prostate Cancer Paternal Uncle 2 Michael Heart Disease Sister Relation Name Status Comments Brother Alive Father Maternal Grandfather Maternal Grandmother Mother Other Paternal Grandfather Paternal Grandmother Paternal Uncle 1 veronica Paternal Uncle 2 Michael Sister Alive Social History Tobacco Use Types Packs/Day Years Used Date Smoking Tobacco: Never Smokeless Tobacco: Never Tobacco Cessation:Counseling Given: No Alcohol Use Standard Drinks/Week Comments No 0 (1 standard drink = 0.6 oz pur e alcohol) PHQ-2 Answer Date Recorded Total Score - Questions 1-9 0 04/07 Education Answer Date Recorded What is the highest level of school you have completed or the highest degree you have received? 12th grade 08/20/2022 Sex and Gender Information Value Date Recorded Sex Assigned at Not on file Legal Sex Male 10:44 AM CDT Gender Identity Not on file Sexual Orientation Not on file Last Filed Vital Signs Vital Sign Reading Time Taken Comments Blood Pressure 116/74 10/14/2023 8:20 AM CDT Pulse 76 10/14/2023 8:20 AM CDT Temperature 36.4 ??C (97.5 ??F) 10/14/2023 8:20 AM CD T Respiratory Rate 12 10/14/2023 8:20 AM CDT Oxygen Saturation 95% 10/14/2023 8:20 AM CDT Inhaled Oxygen Concentration - - Weight 100.7 kg (222 lb) 10/14/2023 8:20 AM CDT Height 172.7 cm (5' 8 ) 04/23/2023 11:41 AM EXAMINATION SCORER Body Mass Index 33.75 04/23/2023 11:41 AM EXAMINATION SCORER Plan of Treatment Upcoming Encounters Date Type Department Care Team (Late st Contact Info) Description 05/20/2024 8:15 AM EXAMINATION SCORER Office Visit [facility] - Internal Medicine - [place] [address] [place] [address] Aburee Crump, PAC [address] [place] [address] Health Maintenance Due Date Last Done Comments Diabetes: Eye Exam 1955 Diabetes: Foot Exam 1955 Hepatitis C Virus (HCV) Screening 1955 TdaP Immunization 1955 Zoster Immunization (1 of 2) 1972 Colonoscopy 1998 Colorectal Cancer Screening 1998 Cologuard 10/29/2003 Immunochemical Fecal Occult Blood 10/29/2003 Respiratory Syncytial Virus (RSV) Immunization (Adult) (1 - Risk 60-74 years 1-dose series) 2013 Pneumococcal Immunization (50+ years) (2 of 2 - PCV) 11/06/2017 11/06/2016 SARS-COV-2 Immunization (3 - Pfizer risk series) 09/27/2020 08/30/2020, 08/08/2020 Influenza Immunization (#1) 2023 Diabetes: Hemoglobin A1c 03/11/2024 024, 05/19/2023, 03/04/2023, Additional history exists Diabetes: Nephropathy Screening 10/13/2024 10/14/2023, 05/19/2023, 05/17/2022, Additional history exists Pneumococcal Immunization Combined Discontinued 11/06/2016 PSA Discussion Discontinued 05/19/2023, 05/07, 01/26/2021, Additional history exists Hepatitis B Immunization Aged Out No longer eligible based on patient's age to complete this topic Meningococcal Immunization (ACWY) Aged Out No longer eligible based on patient's age to complete this topic Rotavirus Immunization Aged Out No lo nger eligible based on patient's age to complete this topic Medical Devices Implanted Type Area Dental Aide Device Identifier Shelf Expiration Date Model / Serial / Lot Mesh Srg Ventralight St Sepra Echo Ps 8x6in Mfl Ltwt Abs Loprfl Strl Seprafilm Polyp Hydrogel - [id number] Implanted:Qty: 1 on 12/18/2017 by Rashard Rosenberg MD at [facility] IMPLANT N/A: Abdomen [employer] 07/02/2019 [id number] / [id number] / [id number] Procedures Procedure Name Priority Date/Time Associated Diagnosis Comments CMP (COMPREHENSIVE METABOLIC PANEL) Routine 10/14/2023 9:00 AM CDT Other hyperlipidemia POCT GLYCOSYLATED HEMOGLOBIN Routine 09/10/2023 8:08 AM CDT Type 2 diabetes mellitus without complication, with long-term current use of insulin (HCC) PSA SCREEN Routine 05/19/2023 8:04 AM EXAMINATION SCORER Malignant neoplasm of prostate (HCC) Encounter for screening for malignant neoplasm of prostate from Last 3 Months or Most Recently Relevant to Health Maintenance Results * (ABNORMAL) CMP (COMPREHENSIVE METABOLIC PANEL) (10/14/2023 9:00 AM CDT) SODIUM 140 136 - 145 mmol/L 10/14/2023 3:56 PM CDT [facility] POTASSIUM 4.1 3.5 - 5.1 mmol/L 10/14/2023 3:56 PM CDT [facility] CHLORIDE 107 98 - 107 mmol/L 10/14/2023 3:56 PM CDT [facility] CO2, VENOUS 21(L) 22 - 30 mmol/L 10/14/2023 3:56 PM CDT [facility] ANION GAP 16.1 <18.0 mmol/L 10/14/2023 3:56 PM CDT [facility] GLUCOSE 120(H) 70 - 99 mg/dL 10/14/2023 3:56 PM CDT [facility] BUN 19 8 - 26 mg/dL 10/14/2023 3:56 PM CDT [facility] CREATININE, BLOOD 1.04 0.70 - 1.30 mg/dL 10/14/2023 3:56 PM CDT [facility] BUN/CREATININE RATIO 18 12 - 20 ratio 10/14/2023 3:56 PM CDT [facility] TOTAL PROTEIN 7.4 6.3 - 8.2 g/dL 10/14/2023 3:56 PM CDT [facility] ALBUMIN 4.3 3.5 - 5.0 g/dL 10/14/2023 3:56 PM CDT [facility] A/G RATIO 1.4 1.0 - 2.2 10/14/2023 3:56 PM CDT [facility] CALCIUM 9.6 8.7 - 10.5 mg/dL 10/14/2023 3:56 PM CDT [facility] T BILI 0.5 0.2 - 1.2 mg/dL 10/14/2023 3:56 PM CDT [facility] SGOT (AST) 12 5 - 34 U/L 10/14/2023 3:56 PM CDT [facility] SGPT (ALT) 13 0 - 55 U/L 10/14/2023 3:56 PM CDT [facility] ALKALINE PHOSPHATASE 79 40 - 150 U/L 10/14/2023 3:56 PM CDT [facility] IS THE PATIENT REQUIRED TO BE FASTING? No 10/14/2023 3:56 PM CDT [facility] GFR, ESTIMATED >60 >=60 10/14/2023 3:56 PM CDT [facility] Comment: Creatinine Clearance is the preferred criteria for selecting drug dose adjustments in renally impaired patients. ??The GFR is provided as additional pertinent clinical information. GFR is reported in mL/min/1.73 sq m. Calculation based on the Chronic Kidney Disease Epidemiology Collaboration (CKD- EPI) equation refit without adjustment for race. GFR, EST. >60 >=60 024 3:56 PM CDT [facility] GFR, EST. NONAFRICAN >60 >=60 10/14/2023 3:56 PM CDT [facility] Blood Venipuncture / Unknown 10/14/2023 9:00 AM CDT 10/14/2023 9:00 AM CDT Aubree hCowarlin PAC CHEMISTRY ORDERAB LES Final Result Performing Organization Address [facility] Co de Phone Number [facility] [place] [address] * (ABNORMAL) POCT GLYCOSYLATED HEMOGLOBIN (09/10/2023 8:08 AM CDT) HGB-A1C 9.8(A) 4 - 6 % Blood 09/10/2023 8:08 AM CDT Madhavi Ware MD POINT OF CARE TESTING (MANUAL) F inal Result * PSA SCREEN (05/19/2023 8:04 AM EXAMINATION SCORER) PSA SCREEN, TOTAL <0.10 <4.00 ng/mL 05/19/2023 10:30 AM EXAMINATION SCORER [facility] Blood Venipuncture / Unknown 05/19/2023 8:04 AM EXAMINATION SCORER 05/19/2023 9:35 AM EXAMINATION SCORER Narrative [facility] - 05/19/2023 10:30 AM EXAMINATION SCORER The VizibilityNIIntrohive Total PSA assay is a Chemiluminescent Microparticle Immunoassay (CMIA) for the quantitative determination of total PSA (both free PSA and PSA complexed to [id number]) in human serum. Total PSA values obtained with different assay methods, including Mckeon PSA assays, cannot be used interchangeably. Aubree Rodriguez Theron PAC CHEMISTRY ORDERAB LES Final Result Performing Organization Address City/[facility]/ZIP Co de Phone Number [facility] [place] [address] from Last 3 Months or Most Recently Relevant to Health Maintenance Insurance MEDICARE [employer] Care Teams Canary Raiser Relationship Specialty Start Date End Date Aubree Crump PAC [address] [place] [address] PCP - General Physician Metal Caster 08/03/20 Chuck Goldman MD [address] [place] [address] Consulting Physician Family Medicine 05/13/18 Madhavi Ware MD [address] [address] Consulting Physician Endocrinology 08/29/22
--- OUTSIDE RECORDS SUMMARY | 2024-05-09 13:07 | XMS_ITS | Encounter Summary ---
Author Organization [facility] Address [address] [place] [address] Phone Care Team Providers Care El Teacher Name Role Phone Chuck Goldman MD Unavailable [phone] Aubree Crump PAC Primary Care Pro vider Madhavi Ware MD Unavailable Reason for Visit * Reason Comments Medication Refill Encounter Details Date Type Department Care Team (Late st Contact Info) Description 06/18/2023 Refill [facility] - Internal Medicine - [place] [address] [place] [address] Aubree Crump, PAC [address] [facility] [place] [address] Medication Refill Social History Tobacco Use Types [...] Telephone Encounter - Manuela Alva RN - 06/19/2023 9:02 AM CDT Medication(s) refilled and signed per [facility] Chronic Medication Refill Standing Order for Pediatricand Adult Patients. Requested Prescriptions Pending Prescriptions Disp Refills atorvastatin (LIPITOR) 10 MG Tablet [Pharmacy Med Name: ATORVASTATIN 10MG TABLET] 90 Tablet 1 Sig: Take 1 Tablet by mouth daily. Hmg CoA Reductase Inhibitors Protocol Passed - 06/18/2023 2:21 PM Passed - Visit with relevant provider in past 12 months or upcoming 90 days Recent Visits Date Type Provider Dept 04/23/23 [facility] Showing recent visits within past 365 days and meeting all other requirements Future Appointments No visits were found meeting these conditions. Showing future appointments within next 90 days and meeting all other requirements Passed - Lipid panel in past 12 months LDL Date Value Ref Range Status 05/19/2023 101 <130 mg/dL Final HDL CHOLESTEROL Date Value Ref Range Status 05/19/2023 58 >40 mg/dL Final CHOLESTEROL Date Value Ref Range Status 05/19/2023 183 <200 mg/dL Final TRIGLYCERIDES Date Value Ref Range Status 05/19/2023 121 <150 mg/dL Final VLDL Date Value Ref Range Status 05/19/2023 24 10 - 50 mg/dL Final CHOL/HDL RATIO Date Value Ref Range Status 05/19/2023 3.2 0.0 - 4.4 Final NON-HDL CHOLESTEROL Date Value Ref Range Status 05/19/2023 125 <130 mg/dL Final Passed - CMP in past 12 months SODIUM Date Value Ref Range Status 05/19/2023 139 136 - 145 mmol/L Final POTASSIUM Date Value Ref Range Status 05/19/2023 4.3 3.5 - 5.1 mmol/L Final CHLORIDE Date Value Ref Range Status 05/19/2023 105 98 - 107 mmol/L Final CO2, VENOUS Date Value Ref Range Status 05/19/2023 25 22 - 30 mmol/L Final ANION GAP Date Value Ref Range Status 05/19/2023 13.3 <18.0 mmol/L Final GLUCOSE Date Value Ref Range Status 05/19/2023 223 (H) 70 - 99 mg/dL Final BUN Date Value Ref Range Status 05/19/2023 15 8 - 26 mg/dL Final CREATININE, BLOOD Date Value Ref Range Status 05/19/2023 1.21 0.70 - 1.30 mg/dL Final BUN/CREATININE RATIO Date Value Ref Range Status 05/19/2023 12 12 - 20 ratio Final TOTAL PROTEIN Date Value Ref Range Status 05/19/2023 7.6 6.3 - 8.2 g/dL Final ALBUMIN Date Value Ref Range Status 05/19/2023 4.4 3.5 - 5.0 g/dL Final A/G RATIO Date Value Ref Range Status 05/19/2023 1.4 1.0 - 2.2 Final CALCIUM Date Value Ref Range Status 05/19/2023 9.9 8.7 - 10.5 mg/dL Final T BILI Date Value Ref Range Status 05/19/2023 0.6 0.2 - 1.2 mg/dL Final SGOT (AST) Date Value Ref Range Status 05/19/2023 16 5 - 34 U/L Final SGPT (ALT) Date Value Ref Range Status 05/19/2023 25 0 - 55 U/L Final ALKALINE PHOSPHATASE Date Value Ref Range Status 05/19/2023 98 40 - 150 U/L Final GFR, EST. NONAFRICAN Date Value Ref Range Status 05/19/2023 59 (L) >=60 Final GFR, EST. Date Value Ref Range Status 05/19/2023 >60 >=60 Final GFR, ESTIMATED Date Value Ref Range Status 05/19/2023 >60 >=60 Final Comment: Creatinine Clearance is the preferred criteria for selecting drug dose adjustments in renally impaired patients. The GFR is provided as additional pertinent clinical information. GFR is reported in mL/min/1.73 sq m. Calculation based on the Chronic Kidney Disease Epidemiology Collaboration (CKD- EPI) equation refitwithout adjustment for race. IS THE PATIENT REQUIRED TO BE FASTING? Date Value Ref Range Status 05/19/2023 No Final HAS THE PATIENT BEEN FASTING? Date Value Ref Range Status 05/17/2022 Yes Final documented in this encounter Plan of Treatment Upcoming Encounters Date Type Department Care Team (Late st Contact Info) Description 05/20/2024 8:15 AM MANAGER DEMAND Office Visit [facility] - Internal Medicine - [place] [address] [place] [address] Aubree Crump, PAC [address] [place] [id number] documented as of this encounter Visit Diagnoses Diagnosis Other hyperlipidemia documented in this encounter Additional Health Concerns Assessment Noted Time PHQ-9 Depression Total Score: 0 08/04/19 3:00 PM CDT documented as of this encounter Care Teams El Teacher Relationship Specialty Start Date End Date Aubree Crump, PAC [address] [place] [address] PCP - General Physician Power Transformer Inspector 08/03/20 Chuck Goldman MD [address] [place] [address] Consulting Physician Family Medicine 05/13/18 Madhavi Ware MD #[address] [address] Consulting Physician Endocrinology 08/29/22 documented as of this encounter
--- OUTSIDE RECORDS SUMMARY | 2024-05-09 13:07 | XMS_ITS | Encounter Summary ---
Author Organization [facility] Address [address] [place] [address] Phone Care Team Providers Care Adjunct Psychology Professor Name Role Phone Chuck Goldman MD Unavailable [phone] Aubree Crump PAC Primary Care Pro vider Madhavi Ware MD Unavailable Reason for Visit * Reason Comments Medication Refill Encounter Details Date Type Department Care Team (Late st Contact Info) Description 04/14/2022 Refill [facility] - Internal Medicine - [place] [address] [place] [address] Aubree Crump, PAC [address] [address] Medication Refill Social History Tobacco [...] Telephone Encounter - Manuela Alva RN - 04/14/2022 1:17 PM CST Medication failed the protocol, provider to review and approve the medication order if appropriate. Requested Prescriptions Pending Prescriptions Disp Refills Jardiance 25 MG Tablet [Pharmacy Med Name: JARDIANCE 25 MG TABLET] 90 Tablet 1 Sig: TAKE 1 TABLET BY MOUTH DAILY. SGLT2 Inhibitors Protocol Failed - 04/14/2022 1:03 PM Failed - Visit with relevant provider in past 6 months or upcoming 90 days Recent Visits No visits were found meeting these conditions. Showing recent visits within past 182 days and meeting all other requirements Future Appointments No visits were found meeting these conditions. Showing future appointments within next 90 days and meeting all other requirements Failed - HgA1C on record in past 6 months HGB-A1C Date Value Ref Range Status 09/24/2021 8.0 (H) 4.0 - 6.0 % Final Failed - GFR greater than or equal to 30 in past 6 months GFR, EST. NONAFRICAN Date Value Ref Range Status 01/26/2021 >60 >=60 Final BREAKER documented in this encounter Plan of Treatment Upcoming Encounters Date Type Department Care Team (Late st Contact Info) Description 05/20/2024 8:15 AM BACKBREAKER Office Visit [facility] - Internal Medicine [facility] [address] [place] [address] Aubree Crump PAC [address] [place] [address] documented as of this encounter Visit Diagnoses Not on filedocumented in this encounter Additional Health Concerns Assessment Noted Time PHQ-9 Depression Total Score: 0 08/04/19 21 3:00 PM CDT documented as of this encounter Care Teams Adjunct Psychology Professor Relationship Specialty Start Date End Date Aubree Crump PAC [address] [place] [address] PCP - General Physician Crochet Beader 08/03/20 Chuck Goldman MD [address] [place] [address] Consulting Physician Family Medicine 05/13/18 Madhavi Ware MD [address] [address] Consulting Physician Endocrinology 08/29/22 documented as of this encounter
--- OUTSIDE RECORDS SUMMARY | 2024-05-09 13:07 | XMS_ITS | Encounter Summary ---
Author Organization [facility] Address [address] [place] [address] Phone Care Team Providers Care Town Manager Name Role Phone Chuck Goldman MD Unavailable [phone] Aubree Crump PAC Primary Care Pro vider Madhavi Ware MD Unavailable Reason for Visit * Reason Comments Medication Refill Encounter Details Date Type Department Care Team (Late st Contact Info) Description 03/18/2022 Refill [facility] - Internal Medicine - [place] [address] [place] [address] Aubree Crump, PAC [address] [place] [address] Medication Refill Social History Tobacco [...] Telephone Encounter - Manuela Alva RN - 03/18/2022 11:00 AM CST Medication failed the protocol, provider to review and approve the medication order if appropriate. Requested Prescriptions Pending Prescriptions Disp Refills metFORMIN (GLUCOPHAGE-XR) 500 MG TABLET SR 24 HR [Pharmacy Med Name: METFORMIN ER 500MG TABLETS] 180 Tablet 0 Sig: TAKE 2 TABLETS DAILY Biguanides Protocol Failed - 03/18/2022 10:07 AM Failed - Visit with relevant provider [...] 8.0 (H) 4.0 - 6.0 % Final TH COUNSELOR documented in this encounter Plan of Treatment Upcoming Encounters Date Type Department Care Team (Late st Contact Info) Description 05/20/2024 8:15 AM HEALTH COUNSELOR Office Visit [facility] - Internal Medicine [place] [address] [place] [address] Aubree Crump PAC [address] [place] [address] documented as of this encounter Visit Diagnoses Not on filedocumented in this encounter Additional Health Concerns Assessment Noted Time PHQ-9 Depression Total Score: 0 08/04/19 21 3:00 PM CDT documented as of this encounter Care Teams Town Manager Relationship Specialty Start Date End Date Aubree Crump PAC [address] [place] [address] PCP - General Physician Senior Ruby Developer 08/03/20 Chuck Goldman MD [address] [place] [address] Consulting Physician Family Medicine 05/13/18 Madhavi Ware MD [address] [address] Consulting Physician Endocrinology 08/29/22 documented as of this encounter
--- OUTSIDE RECORDS SUMMARY | 2024-05-09 13:07 | XMS_ITS | Encounter Summary ---
Author Organization [facility] Address [address] [place] [address] Phone Care Team Providers Care Vp Hr Diversity Name Role Phone Chuck Goldman MD Unavailable [phone] Aubree Crump PAC Primary Care Pro vider Madhavi Ware MD Unavailable Reason for Visit * Reason Comments Medication Refill Encounter Details Date Type Department Care Team (Late st Contact Info) Description 03/02/2023 Refill [facility] - Internal Medicine - [place] [address] [place] [address] Aubree Crump, PAC [address] [facility] [place] [address] Medication Refill Social History Tobacco Use Types [...] Telephone Encounter - Manuela Alva RN - 03/02/2023 3:36 PM CST Medication failed the protocol, provider to review and approve the medication order if appropriate. Requested Prescriptions Pending Prescriptions Disp Refills Xarelto 20 MG Tablet [Pharmacy Med Name: XARELTO 20 MG TABLET] 90 Tablet 3 Sig: TAKE ONE TABLET BY MOUTH DAILY Not Delegated - DOACs Protocol Failed - 03/02/2023 1:12 PM Failed - This refill cannot be [...] 01/26/2021 34.0 31.0 - 36.0 g/dL Final Passed - Visit with relevant provider in past 12 months or upcoming 90 days Recent Visits Date Type Provider Dept 09/03/22 Office Visit Aubree Crump PAC [facility] [place] Showing recent visits within past 365 days and meeting all other requirements Future Appointments Date Type Provider Dept 03/06/23 Appointment Aubree Crupm PAC [facility] [place] Showing future appointments within next 90 days and meeting all other requirements Passed - CMP on record in the past year SODIUM Date Value Ref Range Status 05/17/2022 130 (L) 136 - 144 mmol/L Final POTASSIUM Date Value Ref Range Status 05/17/2022 3.9 3.5 - 5.1 mmol/L Final CHLORIDE Date Value Ref Range Status 05/17/2022 96 (L) 100 - 110 mmol/L Final CO2, VENOUS Date Value Ref Range Status 05/17/2022 25 22 - 32 mmol/L Final ANION GAP Date Value Ref Range Status 05/17/2022 12.9 8.0 - 20.0 mmol/L Final GLUCOSE Date Value Ref Range Status 05/17/2022 173 (H) 70 - 99 mg/dL Final BUN Date Value Ref Range Status 05/17/2022 20 8 - 23 mg/dL Final CREATININE, BLOOD Date Value Ref Range Status 05/17/2022 1.04 0.80 - 1.30 mg/dL Final BUN/CREATININE RATIO Date Value Ref Range Status 05/17/2022 19 12 - 20 ratio Final TOTAL PROTEIN Date Value Ref Range Status 05/17/2022 7.2 6.0 - 8.3 g/dL Final ALBUMIN Date Value Ref Range Status 05/17/2022 4.4 3.5 - 5.2 g/dL Final Comment: The colormetric methods used for the determination of Albumin may lead to falsely elevated test results in patients suffering from renal failure or insufficiency due to interference with other proteins. A/G RATIO Date Value Ref Range Status 05/17/2022 1.6 1.0 - 2.0 Final CALCIUM Date Value Ref Range Status 05/17/2022 9.6 8.9 - 10.3 mg/dL Final T BILI Date Value Ref Range Status 05/17/2022 0.4 <=1.2 mg/dL Final SGOT (AST) Date Value Ref Range Status 05/17/2022 15 <=40 U/L Final SGPT (ALT) Date Value Ref Range Status 05/17/2022 23 <=41 U/L Final ALKALINE PHOSPHATASE Date Value Ref Range Status 05/17/2022 93 40 - 130 U/L Final GFR, EST. NONAFRICAN Date Value Ref Range Status 05/17/2022 >60 >=60 Final GFR, EST. Date Value Ref Range Status 05/17/2022 >60 >=60 Final GFR, ESTIMATED Date Value Ref Range Status 05/17/2022 >60 >=60 Final Comment: Creatinine Clearance is the preferred criteria for selecting drug dose adjustments in renally impaired patients. The GFR is provided as additional pertinent clinical information. GFR is reported in mL/min/1.73 sq m. Calculation based on the Chronic Kidney Disease Epidemiology Collaboration (CKD- EPI) equation refitwithout adjustment for race. IS THE PATIENT REQUIRED TO BE FASTING? Date Value Ref Range Status 05/17/2022 Yes Final HAS THE PATIENT BEEN FASTING? Date Value Ref Range Status 05/17/2022 Yes Final Passed - Creatinine and GFR on record in the past year CREATININE, BLOOD Date Value Ref Range Status 05/17/2022 1.04 0.80 - 1.30 mg/dL Final GFR, ESTIMATED Date Value Ref Range Status 05/17/2022 >60 >=60 Final Comment: Creatinine Clearance is the preferred criteria for selecting drug dose adjustments in renally impaired patients. The GFR is provided as additional pertinent clinical information. GFR is reported in mL/min/1.73 sq m. Calculation based on the Chronic Kidney Disease Epidemiology Collaboration (CKD- EPI) equation refitwithout adjustment for race. GFR, EST. 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
--- OUTSIDE RECORDS SUMMARY | 2024-05-09 13:07 | XMS_ITS | Encounter Summary ---
Author Organization [facility] Address [address] [place] [address] Phone Care Team Providers Care Amortization Clerk Name Role Phone Chuck Goldman MD Unavailable [phone] Aubree Crump PAC Primary Care Pro vider Madhavi Ware MD Unavailable Reason for Visit * Reason Comments Medication Refill Encounter Details Date Type Department Care Team (Late st Contact Info) Description 04/21/2023 Refill [facility] - Primary Care - [place] [address] [place] [address] Aubree Crump, PAC [address] [place] [address] Medication Refill Social History Tobacco [...] on file documented as of this encounter Functional Status * Question Answer Date of Assessment Author Little interest or pleasure in doing things Not at all 04/23/2023 11:41 AM Myla Colmenares RMA Feeling down, depressed, or hopeless Not at all 04/23/2023 11:41 AM Myla Colmenares RMA * Over the past 2 weeks, how often have you been bothered by any of the following problems? Question Answer Date of Assessment Author Patient Health Questionnaire -2 Score 0 04/23/2023 11:41 AM Myla Colmenares RMA documented as of this encounter Miscellaneous Notes * Telephone Encounter - Manuela Alva RN - 04/21/2023 1:49 PM CST Medication failed the protocol, provider to review and approve the medication order if appropriate. Requested Prescriptions Pending Prescriptions Disp Refills metFORMIN (GLUCOPHAGE-XR) 500 MG TABLET SR 24 HR [Pharmacy Med Name: METFORMIN HCL ER 500 MG TABLET] 180 Tablet 0 Sig: TAKE TWO TABLETS BY MOUTH DAILY Biguanides Protocol Failed - 04/21/2023 1:39 PM Failed - GFR on record in past 6 months GFR, EST. NONAFRICAN Date Value Ref Range Status 05/17/2022 >60 >=60 Final Passed - Visit with relevant provider in past 6 months or upcoming 90 days Recent Visits No visits were found meeting these conditions. Showing recent visits within past 182 days and meeting all other requirements Future Appointments Date Type Provider Dept 04/23/23 Appointment Aubree Crump, [facility] Showing future appointments within next 90 days and meeting all other requirements Passed - HgA1C on record in past 6 months HGB-A1C Date Value Ref Range Status 03/04/2023 8.6 (A) 4 - 6 % Final Jardiance 25 MG Tablet [Pharmacy Med Name: JARDIANCE 25 MG TABLET] 90 Tablet 1 Sig: TAKE ONE TABLET BY MOUTH DAILY SGLT2 Inhibitors Protocol Failed - 04/21/2023 1:39 PM Failed - GFR greater than or equal to 30 in past 6 months GFR, EST. NONAFRICAN Date Value Ref Range Status 05/17/2022 >60 >=60 Final Passed - Visit with relevant provider in past 6 months or upcoming 90 days Recent Visits No visits were found meeting these conditions. Showing recent visits within past 182 days and meeting all other requirements Future Appointments Date Type Provider Dept 04/23/23 Appointment Aubree Crump, [facility] Showing future appointments within next 90 days and meeting all other requirements Passed - HgA1C on record in past 6 months HGB-A1C Date Value Ref Range Status 03/04/2023 8.6 (A) 4 - 6 % Final MOTIVE ELECTRICIAN documented in this encounter Plan of Treatment Upcoming Encounters Date Type Department Care Team (Late st Contact Info) Description 05/20/2024 8:15 AM AUTOMOTIVE ELECTRICIAN [facility] - [facility] - [place] [address] [place] [address] Aubree Crump PAC [address] [place] [address] documented as of this encounter Visit Diagnoses Not on filedocumented in this encounter Additional Health Concerns Assessment Noted Time PHQ-9 Depression Total Score: 0 08/04/19 21 3:00 PM CDT documented as of this encounter Care Teams Amortization Clerk Relationship Specialty Start Date End Date Aubree Crump PAC [address] [place] [address] PCP - General Physician Business Analytics Intern 08/03/20 Chuck Goldman MD [address] [place] [address] Consulting Physician Family Medicine 05/13/18 Madhavi Ware MD [address] [address] Consulting Physician Endocrinology 08/29/22 documented as of this encounter
--- OUTSIDE RECORDS SUMMARY | 2024-05-09 13:07 | XMS_ITS | Encounter Summary ---
Author Organization [facility] Address [address] [place] [address] Phone Care Team Providers Care Vice President Sales And Marketing Name Role Phone Chuck Goldman MD Unavailable [phone] Aubree Crump PAC Primary Care Pro vider Madhavi Ware MD Unavailable Reason for Visit * Reason Comments Medication Refill Encounter Details Date Type Department Care Team (Late st Contact Info) Description 09/29/2022 Refill [facility] - Internal Medicine - [place] [address] [place] [address] Aubree Crump, PAC [address] [facility] [place] [address] Medication Refill Social History Tobacco Use Types [...] suspected to have Coronavirus/COVID-19? No / Unsure 09/15/2022 2:06 PM CDT documented as of this encounter Miscellaneous Notes * Telephone Encounter - Amber Cool RN - 09/30/2022 9:51 AM CDT Last Rx 09/03/22 did not have a SIG - if the 2 tabs daily is correct, please resend. Per nursing clinical judgement, provider to review and approve the medication(s) order(s) if appropriate. Requested Prescriptions Pending Prescriptions Disp Refills metFORMIN (GLUCOPHAGE-XR) 500 MG TABLET SR 24 HR [Pharmacy Med Name: METFORMIN ER 500MG TABLETS] 180 Tablet 0 Sig: TAKE 2 TABLETS DAILY Biguanides Protocol Passed - 09/29/2022 1:46 PM Passed - Visit with relevant provider in past 6 months or upcoming 90 days Recent Visits Date Type Provider Dept 09/03/22 Office Visit [facility]ree Crump, [facility] [place] Showing recent visits within past 182 days and meeting all other requirements Future Appointments No visits were found meeting these conditions. Showing future appointments within next 90 days and meeting all other requirements Passed - HgA1C on record in past 6 months HGB-A1C Date Value Ref Range Status 09/15/2022 8.1 (A) 4 - 6 % Final Passed - GFR on record in past 6 months GFR, EST. NONAFRICAN Date Value Ref Range Status 05/17/2022 >60 >=60 Final documented in this encounter Plan of Treatment Upcoming Encounters Date Type Department Care Team (Late st Contact Info) Description 05/20/2024 8:15 AM BEATER HEAD [facility] - Internal Medicine - [place] [address] [place] [id number] Aubree Crump, PAC [address] [place] [address] documented as of this encounter Visit Diagnoses Not on filedocumented in this encounter Additional Health Concerns Assessment Noted Time PHQ-9 Depression Total Score: 0 08/04/19 21 3:00 PM CDT documented as of this encounter Care Teams Vice President Sales And Marketing Relationship Specialty Start Date End Date Aubree Crump PAC [address] [place] [address] PCP - General Physician Rail Manager 08/03/20 Chuck Goldman MD [address] [place] [address] Consulting Physician Family Medicine 05/13/18 Madhavi Ware MD [address] [address] Consulting Physician Endocrinology 08/29/22 documented as of this encounter
--- OUTSIDE RECORDS SUMMARY | 2024-05-09 13:07 | XMS_ITS | Encounter Summary ---
Author Organization [facility] Address [address] [place] [address] Phone Care Team Providers Care Clinical Administrator Name Role Phone Letitia Martínez MD Primary Care Provider Chuck Goldman MD Unavailable [phone] Aubree Crump PAC Primary Care Pro vider Madhavi Ware MD Unavailable Reason for Visit * Reason Comments Medication Refill Encounter Details Date Type Department Care Team (Late st Contact Info) Description 03/20/2020 Refill [facility] [address] [place], [place] [address] Letitia Martínez MD [address] [place] [address] Medication Refill Social History Tobacco Use Types Packs/Day Years Used Date Smoking Tobacco: Never Smokeless Tobacco: Never Alcohol Use Standard Drinks/Week Comments No 0 (1 standard drink = 0.6 oz pur e alcohol) PHQ-2 Answer Date Recorded Total Score - Questions 1-9 0 07/2019 Sex and Gender Information Value Date Recorded Sex Assigned at Not on file Legal Sex Male 10:44 AM CDT Gender Identity Not on file Sexual Orientation Not on file documented as of this encounter Miscellaneous Notes * Telephone Encounter - Shelli Lin RN - 03/20/2020 2:00 PM CST Sent to PCP OR ENLISTED ADVISOR * Telephone Encounter - Shelli Lin RN - 03/20/2020 1:59 PM CST Medication failed the protocol, provider to review and approve the medication order if appropriate. Last OV 02/08/20, F/U 08/06/20, Last Rx 02/08/20 Shelli YARBROUGH Requested Prescriptions Pending Prescriptions Disp Refills Jardiance 25 MG Tablet [Pharmacy Med Name: JARDIANCE 25 MG TABLET] 90 Tab 0 Sig: TAKE 1 TAB BY MOUTH DAILY FOR 90 DAYS. Off-Protocol Failed - 03/20/2020 1:35 PM Failed - Medication not assigned to a protocol, review manually. Passed - Valid encounter within last 12 months Past Office Visits Recent Outpatient Visits 1 month ago Pain in both hands [facility] Aubree Monte PAC 7 months ago Type 2 diabetes mellitus without complication, without long-term current use of insulin ([facility]) [facility] Aubree King PAC 1 year ago Type 2 diabetes mellitus without complication, without long-term current use of insulin ([facility]) [facility] Letitia Singh MD 1 year ago Screening for malignant neoplasm of prostate [facility] Letitia Singh MD 1 year ago Recurrent deep vein thrombosis (DVT) ([facility]) [facility] Letitia Singh MD Upcoming Appointments Future Appointments In 4 months Aubree Crump PAC [facility] - Recent and Past Visits Recent Visits Date Type Provider Dept 02/08/20 Office Visit Aubree Crump PAC [facility] 08/10/19 Telemedicine Aubree Crump PAC [facility] 02/16/19 [facility] recent visits within past 460 days with a meds authorizing provider and meeting all other requirements Future Appointments No visits were found meeting these conditions. Showing future appointments within next 90 days with a meds authorizing provider and meeting all other requirements OR ENLISTED ADVISOR documented in this encounter Plan of Treatment Upcoming Encounters Date Type Department Care Team (Late st Contact Info) Description 05/20/2024 8:15 AM SENIOR ENLISTED ADVISOR Office Visit [facility] - Internal Medicine - [place] [address] [place] [address] Aubree Crump, [facility] [address] [place] [address] documented as of this encounter Visit Diagnoses Not on filedocumented in this encounter Additional Health Concerns Assessment Noted Time PHQ-9 Depression Total Score: 0 02/08/20 2:00 PM SENIOR ENLISTED ADVISOR documented as of this encounter Care Teams Clinical Administrator Relationship Specialty Start Date End Date Letitia Martínez MD [address] [place] [address] PCP - General Family Medicine 02/23/15 08/02/20 Aubree Crump, [facility] [address] [place] [address] PCP - General Physician Medical Program Specialist 08/03/20 Chuck Goldman MD [address] [place] [address] Consulting Physician Family Medicine 05/13/18 Madhavi Ware MD [address] [address] Consulting Physician Endocrinology 08/29/22 documented as of this encounter
--- OUTSIDE RECORDS SUMMARY | 2024-05-09 13:07 | XMS_ITS | Encounter Summary ---
Author Organization [facility] Address [address] [place] [address] Phone Care Team Providers Care Business Process Analyst Name Role Phone Chuck Goldman MD Unavailable [phone] Aubree Crump PAC Primary Care Pro vider Madhavi Ware MD Unavailable Reason for Visit * Reason Comments Medication Refill Encounter Details Date Type Department Care Team (Late st Contact Info) Description [facility] [address] [place] [address] Letitia Martínez MD [address] [place] [address] Medication Refill Social History Tobacco Use Types Packs/Day Years Used Date Smoking Tobacco: Never Smokeless Tobacco: Never Alcohol Use Standard Drinks/Week Comments No 0 (1 standard drink = 0.6 oz pur e alcohol) PHQ-2 Answer Date Recorded Total Score - Questions 1-9 0 07/07 Sex and Gender Information Value Date Recorded Sex Assigned at Not on file Legal Sex Male 10:44 AM CDT Gender Identity Not on file Sexual Orientation Not on file documented as of this encounter Miscellaneous Notes * Telephone Encounter - Kate Medel RN - 09/21/2020 2:07 PM CDT Please review and sign. documented in this encounter Plan of Treatment Upcoming Encounters Date Type Department Care Team (Late st Contact Info) Description 05/20/2024 8:15 AM TRANSPORTATION MUSEUM HELPER Office Visit [facility] - Internal Medicine - [place] [address] [place] [address] Aubree Crump, PAC [address] [place] [address] documented as of this encounter Visit Diagnoses Not on filedocumented in this encounter Additional Health Concerns Assessment Noted Time PHQ-9 Depression Total Score: 0 08/04/19 21 3:00 PM CDT documented as of this encounter Care Teams Business Process Analyst Relationship Specialty Start Date End Date Aubree Crump, [facility] [address] [place] [address] PCP - General Physician Train Master 08/03/20 Chuck Goldman MD [address] [place] [address] Consulting Physician Family Medicine 05/13/18 Madhavi Ware MD [address] [address] Consulting Physician Endocrinology 08/29/22 documented as of this encounter
--- NOTE | 2024-05-09 13:23 | ED.WOUNDLAC ---
HPI - Wound/Laceration General Chief Complaint: Wound/Laceration Stated Complaint: LACERATION Time Seen by Provider: 05/09/24 12:12 Source: patient Mode of arrival: ambulatory Limitations: no limitations History of Present Illness HPI narrative: 68-year-old male with a history of DVT on Xarelto, dyslipidemia, diabetes mellitus presents to the ED with -- 6 cm full-thickness laceration over the right. He got cut by a chainsaw 1 hour prior to coming to the ED. no other injuries noted. The patient is ambulatory. Onset (ago): hour(s) ( 1 hour ago) Extremity Location: Right: knee Body four view annotation:  1. 6 cm full-thickness laceration over the right knee Place: work Patient tetanus UTD: No Context: accidental Associated symptoms: pain and loss of feeling/numbness Related Data Home Medications ?Medication ?Instructions ?Recorded ?Confirmed ?Last Taken ?Type atorvastatin 10 mg tablet 10 mg PO DAILY 11/01/23 11/01/23 Unknown History empagliflozin 25 mg tablet 25 mg PO DAILY 11/01/23 11/01/23 Unknown History (Jardiance) insulin glargine 100 unit/mL (3 20 unit subcut DAILY 11/01/23 11/01/23 Unknown History mL) subcutaneous pen (Lantus Solostar U-100 Insulin) metformin 500 mg tablet,extended 500 mg PO BID 11/01/23 11/01/23 Unknown History release 24 hr rivaroxaban 20 mg tablet (Xarelto) 20 mg PO DAILY 11/01/23 11/01/23 Unknown History Allergies Allergy/AdvReac Type Severity Reaction Status Date / Time No Known Allergies Allergy Verified 05/09/24 12:09 Review of Systems Review of Systems: All systems reviewed & are unremarkable except as noted in HPI and below PMFSH Past Medical History Medical History (Updated 05/09/24 @ 13:30 by Jeevan Bailey MD) DVT (deep venous thrombosis) Diabetes Dyslipidemia Surgical History Surgical History (Updated 05/09/24 @ 13:26 by Jeevan Bailey MD) Total knee replacement status Exam Narrative: vitals are stable Const: General: no acute distress Nutritional Appearance: well nourished Orientation/consciousness: patient oriented x3 Limitations: no limitations HENMT: Head: normal to inspection Ears: external ears normal Face/Nose/Sinus: Normal external nose present Face and sinus: normal facial exam Mouth: Yes Normal oral and palatal mucosa present Throat: posterior oropharynx normal Eyes: Conjunctivae: conjunctivae normal Pupils: Equal, round and reactive pupils present EOM: EOMs intact bilaterally Direct Ophthalmoscopy: no photophobia Neck: Neck: normal visual inspection Chest: Chest palpation & inspection: normal inspection of the chest Resp: Effort & Inspection: normal respiratory effort Auscultation: clear to auscultation bilaterally Cardio: Rate: regular rate Rhythm: regular rhythm GI: GI Palp: Yes Soft to palpation Auscultation: normal bowel sounds Other: no tenderness/rigidity /rebound Back/Spine/Pelvis: Back: no CVA tenderness Skin: General skin exam: normal color Rashes: no rashes Other: 6 cm full-thickness laceration over the right knee distal neurovascular bundle is intact. Neuro: General: patient oriented x3, moves all extremities, no meningeal signs, no focal motor deficits and CN's II-XI intact bilaterally Extrem: General: no clubbing, cyanosis or edema Other: Right knee has a 6 cm full-thickness laceration Psych: Affect: normal affect Attitude: cooperative Course Course Emergency Course: accidental right knee laceration Vital Signs Vital signs: Vital Signs Temperature 36.6 C 05/09/24 12:05 Pulse Rate 80 05/09/24 12:05 Respiratory Rate 18 05/09/24 12:05 Blood Pressure 130/78 05/09/24 12:05 Pulse Oximetry 95 05/09/24 12:05 Oxygen Delivery Room Air 05/09/24 12:05 Temperature 36.6 C 05/09/24 12:05 Pulse Rate 80 05/09/24 12:05 Respiratory Rate 18 05/09/24 12:05 Blood Pressure 130/78 05/09/24 12:05 Pulse Oximetry 95 05/09/24 12:05 Oxygen Delivery Room Air 05/09/24 12:05 Procedures Laceration Laceration 1: Date: 05/09/24 Time: 13:28 Site: lower extremity ( 6 cm full-thickness laceration over right knee) Side (If applicable): right Description: irregular Depth: simple, single layer Local Anesthetic: lidocaine 1% Amount of anesthesia used (mL): 7 ====== Skin Level ====== Skin layer closed with: nylon Size (cm): 3-0 Number of sutures: 8 Technique: running ====== Subcutaneous Layer ====== ====== Muscle Layer ====== ====== Tendon Layer ====== MDM - Wound/Laceration MDM Narrative Medical decision making narrative: full-thickness skin laceration over the right knee Differential Diagnosis Differential diagnosis: Likely abrasion and avulsion of skin Discharge Plan Discharge Clinical Impression: Deep laceration of knee Patient Disposition: Home, Self-Care Condition: Stable Instructions: Antibiotic Form, Laceration (ED) Additional Instructions: suture removal in 10 days. Monitor for infection Patient Language: Citizen Of [place] Prescriptions: New amoxicillin-pot clavulanate 875-125 mg tablet 1 tablet PO Q12H Qty: 14 0RF No Action atorvastatin 10 mg tablet 10 mg PO DAILY metformin 500 mg tablet extended release 24 hr 500 mg PO BID insulin glargine [Lantus Solostar U-100 Insulin] 100 unit/mL (3 mL) insulin pen 20 unit SUBCUT DAILY Xarelto 20 mg tablet 20 mg PO DAILY Jardiance 25 mg tablet 25 mg PO DAILY amoxicillin-pot clavulanate [Augmentin] 500-125 mg tablet 1 tablet PO BID 10 Days Qty: 20 0RF tramadol 50 mg tablet 50 mg PO Q8H PRN (Reason: pain) Qty: 20 0RF Rx Instructions: 1-2 tabs per dose Follow-up/Referrals: Theron,FLAKO Mak [Primary Care Provider] - Time of Disposition: 13:31
[2024-05-09 13:45] VITALS: PULSE 68; RESP 18; O2SAT 98
== END 2024-05-09 13:45 | disposition home or self-care (01) ==
PROVIDERS: Emergency Provider Internal Medicine Critical Care Medicine; PCP Physician Assistant
DX: S81.011A Laceration without foreign body, right knee, initial encounter (principal); E11.9 Type 2 diabetes mellitus without complications; E78.5 Hyperlipidemia, unspecified; Z23 Encounter for immunization; W27.0XXA Contact with workbench tool, initial encounter
CPT/HCPCS: 12002; 90471; 90715; 99283; J2003